=== PATIENT | female | born 1985 | race African-American/Black ===

== ENCOUNTER 2018-07-18 09:53 | Emergency (ER) | payer SELFPAY ==
[~2018-07-18] VITALS: Ht 167.6 cm; Wt 113.0 kg
[2018-07-18] MEDS ORDERED: LEVETIRACETAM 500MG PREMIX 100 ML IV ONE (10:15)
[2018-07-18 11:17] LABS: BASOPHILS % 0.3 % (0.0-2.0); EOSINOPHILS % 3.2 % (0.0-5.0); HEMATOCRIT. 33.9 % (36.0-48.0); HEMOGLOBIN. 10.9 g/dL (12.0-16.0); LYMPHOCYTES % 26.4 % (20.0-50.0); MEAN CORPUSCULAR VOLUME 80.8 fL (81.0-99.0); MEAN PLATELET VOLUME 9.7 fl (7.4-10.4); NEUTROPHILS % 65.1 % (40.0-76.0); PLATELET 230 x1000/uL (130-400); RED BLOOD CELL COUNT 4.19 mill/uL (4.2-5.4); RED CELL DISTRIBUTION WIDTH 18.4 % (11.6-14.6)
[2018-07-18 11:26] LABS: CHLORIDE 107 mEq/L (98-107)
[2018-07-18 11:42] LABS: HCG SCREEN NEGATIVE
[2018-07-18 12:07] VITALS: BP 124/62
== END 2018-07-18 12:08 | disposition home or self-care (01) ==
LOC: ER 09:58
DX: R56.9 Unspecified convulsions (principal); E87.6 Hypokalemia; F12.10 Cannabis abuse, uncomplicated
CPT/HCPCS: 36415; 80053; 84703; 85025; 96365; 99284; J1953; Z7610

== ENCOUNTER 2020-01-22 16:25 | Emergency (ER) | payer MEDICAID ==
[~2020-01-22] VITALS: Ht 167.6 cm; Wt 125.0 kg
[2020-01-22] MEDS ORDERED: ONDANSETRON HCL 4MG/2ML INJ IV STA (16:44)
[2020-01-22] MEDS ORDERED: SODIUM CHLORIDE 0.9% 1,000 ML IV ONE (16:44)
[2020-01-22] MEDS ORDERED: LEVETIRACETAM 500MG PREMIX 100 ML IV ONE (16:45)
[2020-01-22 17:07] LABS: BASOPHILS % 0.5 % (0.0-2.0); EOSINOPHILS % 4.4 % (0.0-5.0); HEMATOCRIT. 36.1 % (36.0-48.0); HEMOGLOBIN. 11.6 g/dL (12.0-16.0); LYMPHOCYTES % 16.7 % (20.0-50.0); MEAN CORPUSCULAR HEMOGLOBIN 25.9 pg (28.0-32.0); MEAN CORPUSCULAR VOLUME 80.2 fL (81.0-99.0); MEAN PLATELET VOLUME 9.5 fl (7.4-10.4); MONOCYTES % 6.6 % (2.0-8.0); NEUTROPHILS % 71.8 % (40.0-76.0); PLATELET 229 x1000/uL (130-400); RED CELL DISTRIBUTION WIDTH 17.5 % (11.6-14.6)
[2020-01-22 17:11] LABS: CHLORIDE 109 mEq/L (98-107)
[2020-01-22 17:16] LABS: ETHANOL BLOOD < 10 mg/dL
[2020-01-22 17:30] LABS: CARBAMAZEPINE < 0.5 ug/mL (4-12); PHENOBARBITAL < 2.1 ug/mL (15.0-40.0); VALPROIC ACID < 3.0 ug/mL (50-100)
[2020-01-22 20:55] VITALS: BP 123/74
== END 2020-01-22 20:57 | disposition home or self-care (01) ==
LOC: ER 16:25
DX: R56.9 Unspecified convulsions (principal); R05 Cough; R09.81 Nasal congestion
CPT/HCPCS: 36415; 71045; 80053; 80156; 80165; 80184; 80185; 80320; 83690; 84443; 85025; 93005; 96374; 96375; 99285; J1953; J2405; J7030; G0480

== ENCOUNTER 2021-03-31 14:37 | Emergency (ER) | payer SELFPAY ==
[~2021-03-31] VITALS: Ht 172.7 cm; Wt 113.0 kg
[2021-03-31] MEDS ORDERED: ACETAMINOPHEN 325MG TABLET PO STA (14:55)
[2021-03-31] MEDS ORDERED: LEVETIRACETAM 500MG PREMIX 100 ML IV ONE (15:00)
[2021-03-31 15:16] LABS: BASOPHILS % 0.9 % (0.0-2.0); EOSINOPHILS % 4.3 % (0.0-5.0); HEMOGLOBIN. 11.3 g/dL (12.0-16.0); LYMPHOCYTES % 35.7 % (20.0-50.0); MEAN CORPUSCULAR HEMOGLOBIN 25.6 pg (28.0-32.0); MEAN CORPUSCULAR VOLUME 79.5 fL (81.0-99.0); MEAN PLATELET VOLUME 9.5 fl (7.4-10.4); MONOCYTES % 6.9 % (2.0-8.0); NEUTROPHILS % 52.2 % (40.0-76.0); PLATELET 249 x1000/uL (130-400); RED BLOOD CELL COUNT 4.41 mill/uL (4.2-5.4); RED CELL DISTRIBUTION WIDTH 17.6 % (11.6-14.6)
[2021-03-31 15:22] LABS: CHLORIDE 110 mEq/L (98-107)
[2021-03-31 16:57] LABS: CLARITY URINE CLOUDY (CLEAR); COLOR URINE YELLOW (YELLOW); KETONES URINE TRACE (NEGATIVE); LEUKOCYTE ESTERASE URINE NEGATIVE (NEGATIVE); NITRITE URINE NEGATIVE (NEGATIVE); OCCULT BLOOD URINE NEGATIVE (NEGATIVE); PROTEIN URINE 1+ (NEGATIVE); UROBILINOGEN URINE 0.2 E.U./dL (0.2-1.0)
[2021-03-31 19:21] VITALS: BP 150/78
[2021-03-31] MEDS ORDERED: KEPP500 MT (19:24)
== END 2021-03-31 19:51 | disposition home or self-care (01) ==
LOC: ER 14:37
DX: G40.909 Epilepsy, unspecified, not intractable, without status epilepticus (principal); S00.512A Abrasion of oral cavity, initial encounter; I49.9 Cardiac arrhythmia, unspecified; X58.XXXA Exposure to other specified factors, initial encounter; Y93.89 Activity, other specified; Y92.89 Other specified places as the place of occurrence of the external cause; Y99.8 Other external cause status
CPT/HCPCS: 36415; 80053; 81003; 81025; 85025; 93005; 96365; 96366; 99284; J1953

== ENCOUNTER 2021-11-03 07:56 | Emergency (ER) | payer SELFPAY ==
[~2021-11-03] VITALS: Ht 175.3 cm; Wt 154.0 kg
[~2021-11-03 07:56] MED LIST: KEPP500 MT
[2021-11-03] MEDS ORDERED: LEVETIRACETAM 100MG/ML ORAL SYR PO ONE (08:15)
[2021-11-03 08:50] LABS: BASOPHILS % 0.6 % (0.0-2.0); EOSINOPHILS % 2.9 % (0.0-5.0); HEMATOCRIT. 35.5 % (36.0-48.0); HEMOGLOBIN. 11.4 g/dL (12.0-16.0); LYMPHOCYTES % 23.4 % (20.0-50.0); MEAN CORPUSCULAR HEMOGLOBIN 25.2 pg (28.0-32.0); MEAN CORPUSCULAR VOLUME 78.7 fL (81.0-99.0); MEAN PLATELET VOLUME 9.3 fl (7.4-10.4); MONOCYTES % 5.9 % (2.0-8.0); NEUTROPHILS % 67.2 % (40.0-76.0); PLATELET 251 x1000/uL (130-400); RED BLOOD CELL COUNT 4.51 mill/uL (4.2-5.4); RED CELL DISTRIBUTION WIDTH 18.5 % (11.6-14.6)
[2021-11-03 08:55] LABS: CHLORIDE 111 mEq/L (98-107)
[2021-11-03] MEDS ORDERED: LEVETIRACETAM 500MG TABLET PO SCH (09:15)
[2021-11-03 09:33] LABS: HCG SCREEN NEGATIVE
[2021-11-03] MEDS ORDERED: ACETAMINOPHEN 325MG TABLET PO ONE (11:30)
[2021-11-03 11:35] LABS: CLARITY URINE CLEAR (CLEAR); COLOR URINE YELLOW (YELLOW); KETONES URINE NEGATIVE (NEGATIVE); LEUKOCYTE ESTERASE URINE NEGATIVE (NEGATIVE); NITRITE URINE NEGATIVE (NEGATIVE); OCCULT BLOOD URINE NEGATIVE (NEGATIVE); PROTEIN URINE TRACE (NEGATIVE); SPECIFIC GRAVITY URINE 1.017 (1.005-1.030); UROBILINOGEN URINE 0.2 E.U./dL (0.2-1.0)
[2021-11-03] MEDS ORDERED: IBUPROFEN 400MG TABLET PO ONE (13:30)
[2021-11-03 14:00] VITALS: BP 109/63
== END 2021-11-03 14:18 | disposition home or self-care (01) ==
LOC: ER 08:03
DX: R56.9 Unspecified convulsions (principal)
CPT/HCPCS: 36415; 80053; 80076; 81003; 82248; 82962; 84703; 85025; 99285

== ENCOUNTER 2022-04-19 09:45 | Emergency (ER) | payer MEDICAID ==
[~2022-04-19] VITALS: Ht 170.2 cm; Wt 149.6 kg
[~2022-04-19 09:45] MED LIST changes: +LEVE1000 MT
[2022-04-19 09:55] VITALS: BP 152/79
[2022-04-19] MEDS ORDERED: EPINEPHRINE 1:1000 1 MG/ML AMP IM ONE (10:15)
[2022-04-19] MEDS ORDERED: DIPHENHYDRAMINE 50MG/ML VIAL IV ONE (10:15)
[2022-04-19] MEDS ORDERED: METHYLPREDNISOLONE SOD SUCC 125 MG/2 ML VIAL IV ONE (10:15)
[2022-04-19 10:30] LABS: BASOPHILS % 0.7 % (0.0-2.0); EOSINOPHILS % 1.8 % (0.0-5.0); HEMOGLOBIN. 10.8 g/dL (12.0-16.0); LYMPHOCYTES % 35.6 % (20.0-50.0); MEAN CORPUSCULAR HEMOGLOBIN 24.3 pg (28.0-32.0); MEAN CORPUSCULAR VOLUME 76.4 fL (81.0-99.0); MEAN PLATELET VOLUME 8.8 fl (7.4-10.4); MONOCYTES % 5.9 % (2.0-8.0); PLATELET 269 x1000/uL (130-400); RED BLOOD CELL COUNT 4.45 mill/uL (4.2-5.4); RED CELL DISTRIBUTION WIDTH 19.4 % (11.6-14.6)
[2022-04-19 10:40] LABS: CHLORIDE 111 mEq/L (98-107)
[2022-04-19] MEDS ORDERED: EPIN0.3P3 IM (13:14)
== END 2022-04-19 14:21 | disposition home or self-care (01) ==
LOC: ER 09:45
DX: R51.9 Headache, unspecified (principal); G40.909 Epilepsy, unspecified, not intractable, without status epilepticus
CPT/HCPCS: 36415; 80053; 85025; 99284

== ENCOUNTER 2022-05-04 15:32 | Emergency (ER) | payer MEDICAID ==
[~2022-05-04] VITALS: Ht 170.2 cm; Wt 123.0 kg
[~2022-05-04 15:32] MED LIST changes: +EPIN0.3P3 IM
[2022-05-04] MEDS ORDERED: TRANEXAMIC ACID 1,000 MG/10 ML TP ONE (16:00)
[2022-05-04] MEDS ORDERED: HYDROCODONE/ACETAMINOPHEN 5/325MG TABLET PO ONE (16:15)
[2022-05-04 16:35] VITALS: BP 127/78
[2022-05-04] MEDS ORDERED: TETANUS, DIPHTHERIA, PERTUSSIS VAC/PF 0.5ML (>10YR OLD) IM ONE (17:15)
[2022-05-04] MEDS ORDERED: BACITRACIN ZINC OINT UDPKT TOP ONE (17:15)
[2022-05-04] MEDS ORDERED: HYDR-4001 MT (17:56)
[2022-05-04] MEDS ORDERED: AMOX1TAB16 MT (17:56)
== END 2022-05-04 18:43 | disposition home or self-care (01) ==
LOC: ER 15:32
DX: S00.83XA Contusion of other part of head, initial encounter (principal); S00.11XA Contusion of right eyelid and periocular area, initial encounter; Z86.59 Personal history of other mental and behavioral disorders; Y04.0XXA Assault by unarmed brawl or fight, initial encounter; Y93.89 Activity, other specified; Y92.89 Other specified places as the place of occurrence of the external cause; Y99.8 Other external cause status
CPT/HCPCS: 70486; 73130; 90471; 90715; 99284

== ENCOUNTER 2022-11-15 19:08 | Emergency (ER) | payer SELFPAY ==
[~2022-11-15] VITALS: Ht 177.8 cm; Wt 146.0 kg
[~2022-11-15 19:08] MED LIST changes: +AMOX1TAB16 MT; +HYDR-4001 MT
[2022-11-15 19:09] VITALS: BP 117/67
[2022-11-15] MEDS ORDERED: LEVETIRACETAM 1000MG PREMIX 100 ML IV ONE (19:45)
[2022-11-15 20:47] LABS: BASOPHILS % 0.5 % (0.0-2.0); EOSINOPHILS % 4.6 % (0.0-5.0); HEMATOCRIT. 36.3 % (36.0-48.0); HEMOGLOBIN. 11.3 g/dL (12.0-16.0); LYMPHOCYTES % 22.6 % (20.0-50.0); MEAN CORPUSCULAR HEMOGLOBIN 25.5 pg (28.0-32.0); MEAN CORPUSCULAR VOLUME 82.2 fL (81.0-99.0); MEAN PLATELET VOLUME 9.5 fl (7.4-10.4); MONOCYTES % 6.2 % (2.0-8.0); NEUTROPHILS % 66.1 % (40.0-76.0); PLATELET 222 x1000/uL (130-400); RED BLOOD CELL COUNT 4.42 mill/uL (4.2-5.4); RED CELL DISTRIBUTION WIDTH 19.4 % (11.6-14.6)
[2022-11-15 20:55] LABS: CHLORIDE 107 mEq/L (98-107)
[2022-11-15 21:02] LABS: HCG SCREEN NEGATIVE
[2022-11-15 21:07] LABS: ETHANOL BLOOD < 10 mg/dL
== END 2022-11-15 21:22 | disposition left against medical advice (07) ==
LOC: ER 19:08
DX: G40.909 Epilepsy, unspecified, not intractable, without status epilepticus (principal); Z91.199 Patient's noncompliance with other medical treatment and regimen due to unspecified reason
CPT/HCPCS: 36415; 80053; 80156; 80165; 80185; 80320; 84703; 85025; 99283; G0480

== ENCOUNTER 2023-08-22 05:47 | Inpatient (IN) | payer MEDICAID ==
[~2023-08-22] VITALS: Ht 170.2 cm; Wt 110.7 kg
[~2023-08-22 05:47] MED LIST changes: -AMOX1TAB16 MT; -EPIN0.3P3 IM; -HYDR-4001 MT
[2023-08-22] MEDS ORDERED: SODIUM CHLORIDE 0.9% 1,000 ML IV ONE (06:00)
[2023-08-22 06:12] LABS: BASOPHILS % 0.6 % (0.0-2.0); DIFFERENTIAL COMMENT 0; EOSINOPHILS % 3.5 % (0.0-5.0); HEMATOCRIT. 34.5 % (36.0-48.0); HEMOGLOBIN. 10.9 g/dL (12.0-16.0); LYMPHOCYTES % 36.6 % (20.0-50.0); MEAN CORPUSCULAR HEMOGLOBIN 25.2 pg (28.0-32.0); MEAN CORPUSCULAR HGB CONC 31.5 g/dL (31.0-37.0); MEAN CORPUSCULAR VOLUME 79.8 fL (81.0-99.0); MONOCYTES % 5.2 % (2.0-8.0); NEUTROPHILS % 54.1 % (40.0-76.0); PLATELET 235 x1000/uL (130-400); RED BLOOD CELL COUNT 4.33 mill/uL (4.2-5.4); RED CELL DISTRIBUTION WIDTH 19.6 % (11.6-14.6); WHITE BLOOD COUNT 9.4 x1000/uL (4.5-11.0)
[2023-08-22 06:21] LABS: CHLORIDE 109 mEq/L (98-107); INDEX HEMOLYSI 1 (1-3); INDEX ICTERIC 1 (1-4); INDEX LIPEMIC 1 (1-3); POTASSIUM 3.6 mEq/L (3.5-5.1); SODIUM 138 mEq/L (136-145)
[2023-08-22 06:30] LABS: ALANINE AMINOTRANSFERASE 16 IU/L (13-61); ALBUMIN 3.2 g/dL (3.4-5.0); ASPARTATE AMINOTRANSFERASE 6 IU/L (15-37); BILIRUBIN TOTAL 0.2 mg/dL (0.1-1.0); CALCIUM 8.5 mg/dL (8.5-10.1); CARBON DIOXIDE 20 mEq/L (21-32); CREATININE 0.7 mg/dL (0.6-1.3); ETHANOL BLOOD < 10 mg/dL (<10); GLUCOSE 108 mg/dL (70-105); TROPONIN I HIGH SENSITIVITY 4 ng/L (<54); UREA NITROGEN BLOOD 8 mg/dL (7-21)
[2023-08-22] MEDS ORDERED: LEVETIRACETAM 1000MG PREMIX 100 ML IV ONE (06:45)
[2023-08-22 08:58] LABS: HCG SCREEN NEGATIVE
[2023-08-22] MEDS ORDERED: DOCUSATE SODIUM 100MG CAPSULE PO PRN (11:15)
[2023-08-22] MEDS ORDERED: MAGNESIUM/ALUMINUM HYDROXIDE/SIMETHICONE 30ML UDC PO PRN (11:15)
[2023-08-22] MEDS ORDERED: CLONIDINE 0.1MG TABLET PO PRN (11:15)
[2023-08-22] MEDS ORDERED: GUAIFENESIN 200MG/10ML SUGAR FREE UDC PO PRN (11:15)
[2023-08-22] MEDS ORDERED: ACETAMINOPHEN 325MG TABLET PO PRN (11:15)
[2023-08-22] MEDS ORDERED: IPRATROPIUM/ALBUTEROL 0.5-3(2.5)MG/3ML NEB HHN PRN (11:15)
[2023-08-22] MEDS ORDERED: ONDANSETRON HCL 4MG/2ML INJ IV PRN (11:15)
[2023-08-22] MEDS ORDERED: FOLIC ACID 1 MG, THIAMINE HCL 100 MG, MVI, ADULT NO.1 10 ML in DEXTROSE 5% WATER 1,000 ML IV ONE ×4 (12:00)
[2023-08-22] MEDS ORDERED: ENOXAPARIN 40MG/0.4ML SYR SUBCUT SCH (12:00)
[2023-08-22 12:07] LABS: CLARITY URINE CLOUDY (CLEAR); COLOR URINE YELLOW (YELLOW); GLUCOSE URINE NEGATIVE (NEGATIVE); KETONES URINE NEGATIVE (NEGATIVE); LEUKOCYTE ESTERASE URINE NEGATIVE (NEGATIVE); NITRITE URINE NEGATIVE (NEGATIVE); OCCULT BLOOD URINE 3+ (NEGATIVE); PH URINE 5.5 (4.5-8.0); PROTEIN URINE TRACE (NEGATIVE); SPECIFIC GRAVITY URINE 1.017 (1.005-1.030); UROBILINOGEN URINE 0.2 E.U./dL (0.2-1.0)
[2023-08-22 12:10] LABS: YEAST URINE NONE SEEN
[2023-08-22 12:22] VITALS: BP 120/77; PULSE 65; RESP 20; TEMP 96.9
[2023-08-22 12:24] VITALS: BP 120/77; PULSE 65; RESP 20; TEMP 96.9
[2023-08-22 12:27] LABS: BACTERIA URINE FEW; RBC URINE 25-50 /hpf (0-2); SQUAMOUS EPITHELIAL CELL URINE FEW /lpf (RARE/1+)
[2023-08-22 12:28] LABS: URIC ACID CRYSTALS URINE 4+ /lpf
[2023-08-22 13:03] LABS: *AMPHETAMINES SCREEN URINE NEGATIVE (NEGATIVE); *BARBITURATES SCREEN URINE NEGATIVE (NEGATIVE); *BENZODIAZEPINES SCREEN URINE NEGATIVE (NEGATIVE); *COCAINE SCREEN URINE NEGATIVE (NEGATIVE); ECSTASY MDMA SCREEN URINE NEGATIVE (NEGATIVE); OPIATES URINE SCREEN NEGATIVE (NEGATIVE); PHENCYCLIDINE URINE SCREEN NEGATIVE (NEGATIVE)
[2023-08-22 13:10] LABS: CANNABINOID URINE SCREEN PRESUMTIVE POSITIVE (NEGATIVE)
[2023-08-22 14:48] LABS: INDEX HEMOLYSI 2 (1-3); INDEX ICTERIC 1 (1-4); INDEX LIPEMIC 1 (1-3)
[2023-08-22 15:04] LABS: CREATINE KINASE 55 IU/L (26-192); CREATINE KINASE MB FRACTION < 1.0 ng/mL (0.5-3.6); IRON 20 ug/dL (50-175); T4 FREE 1.09 ng/dL (0.76-1.46); TOTAL IRON BINDING CAPACITY 306 ug/dL (250-450)
[2023-08-22 16:00] VITALS: BP 140/85; PULSE 75; RESP 18; TEMP 96.9
[2023-08-22] MEDS ORDERED: THIAMINE HCL 200 MG in SODIUM CHLORIDE 0.9% 98 ML IV SCH (16:00)
[2023-08-22 20:00] VITALS: BP 117/71; PULSE 61; RESP 18; TEMP 97.8
[2023-08-22] MEDS: ACETAMINOPHEN 325MG TABLET PO PRN (20:07)
[2023-08-22] MEDS ORDERED: LEVETIRACETAM 500MG PREMIX 100 ML IV SCH (21:00)
[2023-08-22] MEDS: FAMOTIDINE 20MG/2ML VIAL IV SCH (21:25)
[2023-08-22] MEDS: LEVETIRACETAM 500MG PREMIX 100 ML IV SCH (21:26)
[2023-08-23] VITALS: BP 109/84; PULSE 64; RESP 20; TEMP 97.8
[2023-08-23] MEDS: ACETAMINOPHEN 325MG TABLET PO PRN (01:41)
[2023-08-23 04:00] VITALS: BP 118/69; PULSE 58; RESP 20; TEMP 97.9
[2023-08-23 08:01] VITALS: BP 112/73; PULSE 56; RESP 18; TEMP 98
[2023-08-23 08:15] LABS: *AMPHETAMINES SCREEN URINE NEGATIVE (NEGATIVE); *BARBITURATES SCREEN URINE NEGATIVE (NEGATIVE); *BENZODIAZEPINES SCREEN URINE NEGATIVE (NEGATIVE); *COCAINE SCREEN URINE NEGATIVE (NEGATIVE); ECSTASY MDMA SCREEN URINE NEGATIVE (NEGATIVE); OPIATES URINE SCREEN NEGATIVE (NEGATIVE); PHENCYCLIDINE URINE SCREEN NEGATIVE (NEGATIVE)
[2023-08-23 08:23] LABS: CANNABINOID URINE SCREEN PRESUMTIVE POSITIVE (NEGATIVE)
[2023-08-23 08:43] LABS: BASOPHILS % 0.4 % (0.0-2.0); DIFFERENTIAL COMMENT 0; EOSINOPHILS % 0.9 % (0.0-5.0); HEMATOCRIT. 32.1 % (36.0-48.0); HEMOGLOBIN. 10.6 g/dL (12.0-16.0); LYMPHOCYTES % 35.9 % (20.0-50.0); MEAN CORPUSCULAR HEMOGLOBIN 25.7 pg (28.0-32.0); MEAN CORPUSCULAR HGB CONC 32.9 g/dL (31.0-37.0); MEAN CORPUSCULAR VOLUME 78.1 fL (81.0-99.0); MONOCYTES % 5.4 % (2.0-8.0); NEUTROPHILS % 57.4 % (40.0-76.0); PLATELET 196 x1000/uL (130-400); RED BLOOD CELL COUNT 4.11 mill/uL (4.2-5.4); RED CELL DISTRIBUTION WIDTH 19.4 % (11.6-14.6); WHITE BLOOD COUNT 11.2 x1000/uL (4.5-11.0)
[2023-08-23] MEDS ORDERED: THIAMINE HCL 100MG TABLET PO SCH (09:00)
[2023-08-23] MEDS ORDERED: THIAMINE HCL 200 MG in SODIUM CHLORIDE 0.9% 98 ML IV SCH (09:00)
[2023-08-23] MEDS ORDERED: ENOXAPARIN 30MG/0.3ML SYR SUBCUT SCH (09:00)
[2023-08-23] MEDS ORDERED: FERROUS SULFATE 325MG TABLET PO SCH (09:00)
[2023-08-23] MEDS ORDERED: FOLIC ACID 1MG TABLET PO SCH (09:00)
[2023-08-23] MEDS ORDERED: LEVE1000 MT (09:12)
[2023-08-23 09:21] LABS: CHLORIDE 109 mEq/L (98-107); INDEX HEMOLYSI 1 (1-3); INDEX ICTERIC 1 (1-4); INDEX LIPEMIC 1 (1-3); POTASSIUM 3.6 mEq/L (3.5-5.1); SODIUM 139 mEq/L (136-145)
[2023-08-23 09:30] LABS: ALANINE AMINOTRANSFERASE 19 IU/L (13-61); ALBUMIN 3.1 g/dL (3.4-5.0); ASPARTATE AMINOTRANSFERASE 9 IU/L (15-37); BILIRUBIN TOTAL 0.5 mg/dL (0.1-1.0); CALCIUM 8.6 mg/dL (8.5-10.1); CARBON DIOXIDE 26 mEq/L (21-32); CREATININE 0.7 mg/dL (0.6-1.3); GLUCOSE 104 mg/dL (70-105); PHOSPHORUS 2.6 mg/dL (2.5-4.9); PROTEIN TOTAL 6.8 g/dL (6.0-8.3); UREA NITROGEN BLOOD 5 mg/dL (7-21)
[2023-08-23] MEDS: FAMOTIDINE 20MG/2ML VIAL IV SCH (10:20)
[2023-08-23] MEDS: LEVETIRACETAM 500MG PREMIX 100 ML IV SCH (10:21)
[2023-08-23 10:58] VITALS: BP 112/73; PULSE 56; TEMP 98; O2SAT 99
[2023-08-23 11:55] VITALS: BP 117/79; PULSE 68; RESP 18; TEMP 98.1
== END 2023-08-23 12:15 | disposition home or self-care (01) | DRG 53 ==
LOC: ER 05:47 → 7WST 09:31 → EDBEDREQ 09:32 → EDBEDREQTM 09:32
PROVIDERS: ADMIT Internal Medicine; ATTEND Internal Medicine
DX: G40.909 Epilepsy, unspecified, not intractable, without status epilepticus (principal); D50.9 Iron deficiency anemia, unspecified; E66.01 Morbid (severe) obesity due to excess calories; Z68.38 Body mass index [BMI] 38.0-38.9, adult; Z79.899 Other long term (current) drug therapy
CPT/HCPCS: 36415; 80053; 80305; 80320; 81003; 82550; 82553; 82607; 82746; 83036; 83540; 83550; 83735; 84100; 84439; 84443; 84484; 84703; 85025; 99285; J1650; J1953; J3411; J3490; J7030; J7050; J7070; G0480

== ENCOUNTER 2023-09-15 18:52 | Emergency (ER) | payer MEDICAID ==
[~2023-09-15] VITALS: Ht 170.2 cm; Wt 167.0 kg
[~2023-09-15 18:52] MED LIST changes: -KEPP500 MT
[2023-09-15] MEDS ORDERED: TETANUS, DIPHTHERIA, PERTUSSIS VAC/PF 0.5ML (>10YR OLD) IM ONE (21:00)
[2023-09-15] MEDS ORDERED: LIDOCAINE HCL/PF 1% 10 MG/ML 5ML VIAL INFIL ONE (21:00)
[2023-09-15] MEDS ORDERED: BACITRACIN ZINC OINT UDPKT TOP ONE (21:00)
[2023-09-15] MEDS ORDERED: KETOROLAC 30MG/ML VIAL IM ONE (21:00)
[2023-09-15] MEDS ORDERED: TOPUD MT (23:18)
[2023-09-15] MEDS ORDERED: SULF1TAB48 MT (23:18)
[2023-09-16 00:05] VITALS: BP 138/76; PULSE 76; RESP 20; TEMP 98.2
== END 2023-09-16 00:06 | disposition home or self-care (01) ==
LOC: ER 18:52
DX: L02.212 Cutaneous abscess of back [any part, except buttock and flank] (principal)
CPT/HCPCS: 90715; 10060; 90471; 96372; 99284; J1885; J3490; Z7610 ×2

== ENCOUNTER 2023-09-24 12:17 | Emergency (ER) | payer MEDICAID ==
[~2023-09-24] VITALS: Ht 172.7 cm; Wt 128.0 kg
[~2023-09-24 12:17] MED LIST changes: +SULF1TAB48 MT; +TOPUD MT
[2023-09-24 12:20] VITALS: O2SAT 98
[2023-09-24] MEDS ORDERED: KETOROLAC 30MG/ML VIAL IM ONE ×3 (13:15→14:30)
[2023-09-24] MEDS ORDERED: ACETAMINOPHEN 325MG TABLET PO ONE (13:45)
[2023-09-24] MEDS ORDERED: HYDROCODONE/ACETAMINOPHEN 5/325MG TABLET PO ONE (16:15)
[2023-09-24] MEDS ORDERED: HYDROCODONE/ACETAMINOPHEN 5/325MG TABLET PO NR (16:30)
[2023-09-24] MEDS ORDERED: NAPR-1176 MT (16:31)
[2023-09-24 16:55] VITALS: BP 142/78; PULSE 89; RESP 16; TEMP 97.5
== END 2023-09-24 16:57 | disposition home or self-care (01) ==
LOC: ER 12:17
DX: L02.212 Cutaneous abscess of back [any part, except buttock and flank] (principal); Z48.00 Encounter for change or removal of nonsurgical wound dressing
CPT/HCPCS: 81025; 96372; 99283; J1885; Z7610 ×2

== ENCOUNTER 2024-03-05 23:10 | Emergency (ER) | payer BC, MEDICAID ==
[~2024-03-05] VITALS: Ht 177.8 cm; Wt 136.0 kg
[~2024-03-05 23:10] MED LIST changes: +NAPR-1176 MT
[2024-03-05 23:12] VITALS: TEMP 99.3; O2SAT 99
[2024-03-05] MEDS: ACETAMINOPHEN 325MG TABLET PO ONE (23:50)
[2024-03-06 00:02] VITALS: BP 133/78; PULSE 78; RESP 20
[2024-03-06 00:17] LABS: HCG SCREEN NEGATIVE
[2024-03-06] MEDS ORDERED: NAPR500T7 MT (01:22)
== END 2024-03-06 02:59 | disposition home or self-care (01) ==
LOC: ER 23:10
DX: M79.604 Pain in right leg (principal)
CPT/HCPCS: 81025; 84703; 93971; 73562; 99284; Z7610 ×2

== ENCOUNTER 2024-06-19 18:00 | Emergency (ER) | payer BC, MEDICAID ==
[~2024-06-19] VITALS: Ht 180.3 cm; Wt 118.0 kg
[~2024-06-19 18:00] MED LIST changes: +NAPR500T7 MT
[2024-06-19 18:16] VITALS: BP 153/69; PULSE 87; RESP 18; TEMP 98.1; O2SAT 100
[2024-06-19] MEDS ORDERED: KETOROLAC 15MG/ML VIAL IV ONE (20:00)
[2024-06-19 20:07] LABS: BASOPHILS % 0.7 % (0.0-2.0); EOSINOPHILS % 1.6 % (0.0-5.0); HEMATOCRIT. 33.9 % (36.0-48.0); HEMOGLOBIN. 10.7 g/dL (12.0-16.0); LYMPHOCYTES % 28.4 % (20.0-50.0); MEAN CORPUSCULAR HEMOGLOBIN 25.5 pg (28.0-32.0); MEAN CORPUSCULAR HGB CONC 31.5 g/dL (31.0-37.0); MEAN CORPUSCULAR VOLUME 80.9 fL (81.0-99.0); MEAN PLATELET VOLUME 9.9 fl (7.4-10.4); MONOCYTES % 7.4 % (2.0-8.0); NEUTROPHILS % 61.9 % (40.0-76.0); PLATELET 238 x1000/uL (130-400); RED CELL DISTRIBUTION WIDTH 19.9 % (11.6-14.6); WHITE BLOOD COUNT 13.2 x1000/uL (4.5-11.0)
[2024-06-19 20:11] LABS: CHLORIDE 110 mEq/L (98-107); POTASSIUM 3.6 mEq/L (3.5-5.1); SODIUM 140 mEq/L (136-145)
[2024-06-19 20:12] LABS: CARBON DIOXIDE 25 mEq/L (21-32)
[2024-06-19 20:13] LABS: CALCIUM 9.4 mg/dL (8.7-10.4)
[2024-06-19 20:17] LABS: CREATININE 0.7 mg/dL (0.6-1.0); GLUCOSE 92 mg/dL (70-105); UREA NITROGEN BLOOD 6 mg/dL (9-23)
[2024-06-20] MEDS ORDERED: SULF1TAB48 MT (01:41)
[2024-06-20] MEDS ORDERED: CEPH500C2 MT (01:41)
[2024-06-20] MEDS ORDERED: VANCOMYCIN 1000MG/250ML 250 ML IV SCH (01:45)
[2024-06-20] MEDS ORDERED: VANCOMYCIN 1G PREMIX 200 ML IV NR (02:00)
[2024-06-20] MEDS ORDERED: IOHEXOL-300 100 ML BOTTLE ONE (04:11)
== END 2024-06-20 04:20 | disposition home or self-care (01) ==
LOC: ER 18:00
DX: L03.313 Cellulitis of chest wall (principal); Z79.899 Other long term (current) drug therapy
CPT/HCPCS: 99285; 80048; 83605; 85025; 87040; 36415; 84145; 93005; 82542; 74177; Q9967; J3370

== ENCOUNTER 2025-03-17 07:30 | Emergency (ER) | payer BC, MEDICAID ==
[~2025-03-17] VITALS: Ht 175.3 cm; Wt 145.0 kg
[~2025-03-17 07:30] MED LIST changes: +CEPH500C2 MT; +NAPR-1486 MT; -NAPR500T7 MT
[2025-03-17 07:35] VITALS: O2SAT 99
[2025-03-17 09:05] LABS: CLARITY URINE CLOUDY (CLEAR); COLOR URINE YELLOW (YELLOW); GLUCOSE URINE NEGATIVE (NEGATIVE); KETONES URINE NEGATIVE (NEGATIVE); LEUKOCYTE ESTERASE URINE NEGATIVE (NEGATIVE); NITRITE URINE NEGATIVE (NEGATIVE); OCCULT BLOOD URINE NEGATIVE (NEGATIVE); PROTEIN URINE NEGATIVE (NEGATIVE); SPECIFIC GRAVITY URINE 1.024 (1.005-1.030); UROBILINOGEN URINE 0.2 E.U./dL (0.2-1.0)
[2025-03-17 09:29] LABS: BASOPHILS % 0.5 % (0.0-2.0); DIFFERENTIAL COMMENT 0; HEMATOCRIT. 34.2 % (36.0-48.0); HEMOGLOBIN. 10.9 g/dL (12.0-16.0); LYMPHOCYTES % 20.8 % (20.0-50.0); MEAN CORPUSCULAR HEMOGLOBIN 25.4 pg (28.0-32.0); MEAN CORPUSCULAR HGB CONC 31.8 g/dL (31.0-37.0); MEAN CORPUSCULAR VOLUME 79.9 fL (81.0-99.0); MEAN PLATELET VOLUME 9.6 fl (7.4-10.4); MONOCYTES % 5.1 % (2.0-8.0); NEUTROPHILS % 72.6 % (40.0-76.0); PLATELET 214 x1000/uL (130-400); RED BLOOD CELL COUNT 4.29 mill/uL (4.2-5.4); RED CELL DISTRIBUTION WIDTH 17.3 % (11.6-14.6); WHITE BLOOD COUNT 10.1 x1000/uL (4.5-11.0)
[2025-03-17 09:34] LABS: MUCUS URINE 1+ /lpf (< = 2+); SQUAMOUS EPITHELIAL CELL URINE 2+ /lpf (RARE/1+)
[2025-03-17 09:35] LABS: BACTERIA URINE 1+; RBC URINE NONE SEEN /hpf (0-2); WBC URINE 0-2 /hpf (0-2)
[2025-03-17 09:43] LABS: CHLORIDE 110 mEq/L (98-107); SODIUM 137 mEq/L (136-145)
[2025-03-17 09:44] LABS: CARBON DIOXIDE 24 mEq/L (21-32)
[2025-03-17 09:45] LABS: CALCIUM 9.6 mg/dL (8.7-10.4)
[2025-03-17 09:49] LABS: CREATININE 0.6 mg/dL (0.6-1.0); GLUCOSE 84 mg/dL (70-105)
[2025-03-17 09:50] LABS: UREA NITROGEN BLOOD 7 mg/dL (9-23)
[2025-03-17 09:51] LABS: ALANINE AMINOTRANSFERASE 11 IU/L (10-49)
[2025-03-17 09:52] LABS: BILIRUBIN DIRECT 0.1 mg/dL (<=3.0); BILIRUBIN TOTAL 0.4 mg/dL (0.1-1.0); PROTEIN TOTAL 6.9 g/dL (6.0-8.3)
[2025-03-17 09:54] LABS: HCG SCREEN NEGATIVE
[2025-03-17 09:59] LABS: PROTHROMBIN TIME 10.5 sec (9.6-11.0)
[2025-03-17 10:07] LABS: ASPARTATE AMINOTRANSFERASE 13 IU/L (<34)
[2025-03-17 10:44] VITALS: BP 149/78; PULSE 68; RESP 18; TEMP 36.7; O2SAT 99
[2025-03-17 10:57] LABS: TROPONIN I HIGH SENSITIVITY < 4 ng/L (3.0-34)
[2025-03-17] MEDS ORDERED: SULF1TAB48 MT (11:28)
== END 2025-03-17 12:00 | disposition home or self-care (01) ==
LOC: ER 07:30
DX: S70.361A Insect bite (nonvenomous), right thigh, initial encounter (principal); R51.9 Headache, unspecified; I10 Essential (primary) hypertension; Z79.899 Other long term (current) drug therapy; Z86.59 Personal history of other mental and behavioral disorders; W57.XXXA Bitten or stung by nonvenomous insect and other nonvenomous arthropods, initial encounter; Y93.89 Activity, other specified; Y92.89 Other specified places as the place of occurrence of the external cause; Y99.9 Unspecified external cause status
CPT/HCPCS: 36415; 71045; 80048; 80076; 81003; 81025; 83880; 84484; 84703; 85025; 93005; 99285